=== PATIENT | male | born 1955 | race African-American/Black ===

== ENCOUNTER 2023-01-03 10:56 | Emergency (ER) | payer MEDICARE, OTHER ==
[~2023-01-03] VITALS: Ht 170.2 cm; Wt 66.0 kg
[2023-01-03 11:00] VITALS: PULSE 71; RESP 16; TEMP 98.4; O2SAT 98
[2023-01-03 11:40] LABS: BASOPHILS % 0.9 % (0.0-2.0); EOSINOPHILS % 3.6 % (0.0-5.0); HEMATOCRIT. 39.5 % (42.0-52.0); LYMPHOCYTES % 28.4 % (20.0-50.0); MEAN CORPUSCULAR HEMOGLOBIN 29.7 pg (28.0-32.0); MEAN CORPUSCULAR HGB CONC 32.9 g/dL (31.0-37.0); MEAN CORPUSCULAR VOLUME 90.3 fL (80.0-94.0); MONOCYTES % 9.5 % (2.0-8.0); NEUTROPHILS % 57.6 % (40.0-76.0); PLATELET 471 x1000/uL (130-400); RED BLOOD CELL COUNT 4.38 mill/uL (4.7-6.1); RED CELL DISTRIBUTION WIDTH 14.5 % (11.6-14.6); WHITE BLOOD COUNT 5.7 x1000/uL (4.5-11.0)
[2023-01-03 12:18] LABS: ALANINE AMINOTRANSFERASE 30 IU/L (10-49); ALBUMIN 3.2 g/dL (3.2-4.8); ASPARTATE AMINOTRANSFERASE 37 IU/L (<34); BILIRUBIN TOTAL 0.4 mg/dL (0.1-1.0); CALCIUM 8.8 mg/dL (8.7-10.4); CARBON DIOXIDE 29 mEq/L (21-32); CHLORIDE 103 mEq/L (98-107); CREATININE 1.2 mg/dL (0.6-1.3); GLUCOSE 85 mg/dL (70-105); POTASSIUM 4.1 mEq/L (3.5-5.1); PROTEIN TOTAL 7.6 g/dL (6.0-8.3); SODIUM 140 mEq/L (136-145); UREA NITROGEN BLOOD 9 mg/dL (9-23)
== END 2023-01-03 15:10 | disposition left against medical advice (07) ==
LOC: ER 10:56
DX: M79.606 Pain in leg, unspecified (principal); Z53.21 Procedure and treatment not carried out due to patient leaving prior to being seen by health care provider
CPT/HCPCS: 80053; 85025; 36415; 99281; Z7610

== ENCOUNTER 2025-02-09 14:35 | Emergency (ER) | payer OTHER, MEDICARE ==
[~2025-02-09] VITALS: Ht 175.3 cm; Wt 85.0 kg
[2025-02-09 15:03] VITALS: O2SAT 98
[2025-02-09] MEDS: LIDOCAINE 5% PATCH TOP SCH (19:09)
[2025-02-09] MEDS: ACETAMINOPHEN 325MG TABLET PO ONE (19:09)
[2025-02-09] MEDS ORDERED: LIDO-53 TP (21:19)
[2025-02-09 21:32] VITALS: BP 127/73; PULSE 72; RESP 18; TEMP 36.9; O2SAT 98
== END 2025-02-09 21:33 | disposition home or self-care (01) ==
LOC: ER 14:35
DX: M54.16 Radiculopathy, lumbar region (principal); M54.2 Cervicalgia; R07.89 Other chest pain; I10 Essential (primary) hypertension; Z98.890 Other specified postprocedural states; V89.2XXA Person injured in unspecified motor-vehicle accident, traffic, initial encounter; Y93.89 Activity, other specified; Y92.89 Other specified places as the place of occurrence of the external cause; Y99.8 Other external cause status
CPT/HCPCS: 71250; 72128; 72131; 74176; 99285